=== PATIENT | male | born 1980 | race Caucasian/White ===

== ENCOUNTER 2022-02-01 13:35 | Emergency (ER) | payer OTHER, SELFPAY ==
[2022-02-01 13:40] VITALS: BP 130/73; PULSE 72; RESP 16; TEMP 36.7; O2SAT 98
--- NOTE | 2022-02-01 13:54 | ED.SKABFB ---
HPI - Skin/Abscess/Foreign Bdy General Chief complaint: Skin/Abscess/Foreign Body Stated complaint: right hand finger spider bite Time Seen by Provider: 02/01/22 13:48 Source: patient, RN notes reviewed and old records reviewed History of Present Illness HPI narrative: 41-year-old male who presents to express care with complaints of lesion to his right proximal index finger which he noted yesterday morning. Patient states that area has increased in size and redness since last night, he did express some purulent drainage from lesion area this morning. Patient initially thought it could be a spider bite as he had seen a couple brown recluse in the house this week and just recently had the house sprayed then. 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 MD complaint: lesion Onset (ago): day(s) (day 2 of symptoms) Severity scale (1-10): 5 Treatments prior to arrival: attempted to drain pus at home Related Data Home Medications Medication Instructions Recorded Confirmed amlodipine 5 mg tablet 5 mg PO DAILY 02/01/22 02/01/22 aspirin 81 mg tablet,delayed 81 mg PO DAILY 02/01/22 02/01/22 release doxepin 10 mg capsule 10 mg PO DAILY 02/01/22 02/01/22 gabapentin 400 mg capsule 400 mg PO DAILY 02/01/22 02/01/22 metoprolol succinate 50 mg 50 mg PO DAILY 02/01/22 02/01/22 tablet,extended release 24 hr rosuvastatin 20 mg tablet 20 mg PO DAILY 02/01/22 02/01/22 Allergies Allergy/AdvReac Type Severity Reaction Status Date / Time No Known Allergies Allergy Verified 02/01/22 14:02 Review of Systems Review of Systems: CONSTITUTIONAL: Denies fever, chills, or sweats. EYES: Denies visual changes, redness, or discharge. ENT: Denies rhinorrhea, congestion, sore throat, or otalgia. CARDIOVASCULAR: Denies chest pain, palpitations, or edema. RESPIRATORY: Denies cough or dyspnea. GASTROINTESTINAL: Denies abdominal pain, nausea, vomiting, or diarrhea. GENITOURINARY: Denies dysuria or hematuria. SKIN: Positive wound to right proximal dorsal index finger with some redness MUSCULOSKELETAL: Denies back pain, joint pain, or myalgia. NEUROLOGIC: Denies headache, numbness, or weakness. PSYCHIATRIC: Denies anxiety or depression. All systems reviewed & are unremarkable except as noted in HPI and below PMFSH Past Medical History Medical History Diabetes mellitus diet only Hyperlipidemia Hypertension Family History Family History Other Diabetes mellitus Social History Social History (Updated 02/01/22 @ 14:24 by Katherine Bragg NP) Smoking packs per day: 1 Smoking cigarettes per day: 20.0 Smoking status: Current every day smoker Tobacco type: cigarettes Alcohol intake: current Alcohol use details: social Substance use type: does not use Living arrangements: with family Gender identity (if verbalized by the patient): Male Comments At time of signature, agree with nursing past medical, surgical, social and family history. There is no relevant family history pertinent to the presenting complaint Exam Narrative: GENERAL: Well-appearing, well-nourished, and in no acute distress. HEAD: Normocephalic, atraumatic. EYES: PERRLA and EOMI. ENT: Nares clear, no rhinorrhea or epistaxis. Mucous membranes moist. TMs normal with good light reflex throat pink with no lesions or exudates NECK: Supple. No lymphadenopathy CHEST: Clear to auscultation. No respiratory distress. SaO2 98% on room air HEART: Regular rate and rhythm. No murmur heard. Normal peripheral pulses. ABDOMEN: Soft, nontender, nondistended, normal active bowel sounds. EXTREMITIES: Normal range of motion. No edema. SKIN: Warm, dry, no rash, 0.5cm diameter lesion on proximal right index finger with some surrounding redness, no present drainage from site. NEURO: No focal deficits. Alert and oriented x3. Course Course Level of Care: Express
== END 2022-02-01 14:10 | disposition home or self-care (01) ==
PROVIDERS: Emergency Provider Registered Nurse; PCP Internal Medicine
DX: L02.511 Cutaneous abscess of right hand (principal); E11.9 Type 2 diabetes mellitus without complications; E78.5 Hyperlipidemia, unspecified; I10 Essential (primary) hypertension; F17.210 Nicotine dependence, cigarettes, uncomplicated
CPT/HCPCS: 99213; G0463

== ENCOUNTER 2022-07-03 09:43 | Emergency (ER) | payer OTHER, SELFPAY ==
[2022-07-03 09:54] VITALS: BP 136/91; PULSE 84; RESP 20; TEMP 37.1; O2SAT 97
--- NOTE | 2022-07-03 10:36 | ED.GENADULT ---
HPI - General Adult General Chief complaint: Upper Respiratory Infection Stated complaint: Congestion/Cough Time Seen by Provider: 07/03/22 10:36 Source: patient, RN notes reviewed and old records reviewed Mode of arrival: ambulatory Limitations: no limitations History of Present Illness HPI narrative: 41-year-old male presents to [facility] care with complaints of cough and congestion for the past 3-4 days with complaints of feeling like chest is on fire with cough. Patient also states that he has had some sore throat pain and noted white spot on uvula yesterday but is gone today, he reports that he awoke today with left sided of his face feeling full and having pressure. He states that he has been taking Mucinex without any improvement in his symptoms. MD complaint: cough and congestion, sore throat, facial pressure left Severity scale (1-10): 5 Treatments prior to arrival: other (mucinex) Related Data Home Medications Medication Instructions Recorded Confirmed amlodipine 5 mg tablet 5 mg PO DAILY 02/01/22 02/01/22 aspirin 81 mg tablet,delayed 81 mg PO DAILY 02/01/22 02/01/22 release doxepin 10 mg capsule 10 mg PO DAILY 02/01/22 02/01/22 gabapentin 400 mg capsule 400 mg PO DAILY 02/01/22 02/01/22 metoprolol succinate 50 mg 50 mg PO DAILY 02/01/22 02/01/22 tablet,extended release 24 hr rosuvastatin 20 mg tablet 20 mg PO DAILY 02/01/22 02/01/22 metformin 500 mg tablet mg 07/03/22 Allergies Allergy/AdvReac Type Severity Reaction Status Date / Time No Known Allergies Allergy Verified 02/01/22 14:02 Review of Systems Review of Systems: CONSTITUTIONAL: Denies known fever, chills, or sweats. EYES: Denies visual changes, redness, or discharge. ENT: Reports rhinorrhea, congestion, sore throat, no otalgia. CARDIOVASCULAR: Denies chest pain, palpitations, or edema. RESPIRATORY: Reports frequent cough or dyspnea, burning in chest with cough GASTROINTESTINAL: Denies abdominal pain, nausea, vomiting, or diarrhea. GENITOURINARY: Denies dysuria or hematuria. SKIN: Denies rash or itching. MUSCULOSKELETAL: Denies back pain, joint pain, or myalgia. NEUROLOGIC: Denies headache, numbness, or weakness. PSYCHIATRIC: Denies anxiety or depression. All systems reviewed & are unremarkable except as noted in HPI and below PMFSH Past Medical History Medical History Diabetes mellitus diet only Hyperlipidemia Hypertension Family History Family History Other Diabetes mellitus Social History Social History Smoking packs per day: 1 Smoking cigarettes per day: 20.0 Smoking status: Current every day smoker Tobacco type: cigarettes Alcohol intake: current Alcohol use details: social Substance use type: does not use Living arrangements: with family Gender identity (if verbalized by the patient): Male Comments At time of signature, agree with nursing past medical, surgical, social and family history. There is no relevant family history pertinent to the presenting complaint Exam Narrative: GENERAL: Well-appearing, well-nourished, and in no acute distress. HEAD: Normocephalic, atraumatic. EYES: PERRLA and EOMI. ENT: Nares clear, clear rhinorrhea no epistaxis. Mucous membranes moist.TM's normal with dull light reflex, throat red with no lesions or exudates, swelling noted NECK: Supple.no lymphadenopathy CHEST: Clear to auscultation. No respiratory distress. frequent harsh cough, SAO2 97% on room air HEART: Regular rate and rhythm. No murmur heard. Normal peripheral pulses. ABDOMEN: Soft, nontender, nondistended, normal active bowel sounds. EXTREMITIES: Normal range of motion. No edema. SKIN: Warm, dry, no rash. NEURO: No focal deficits. Alert and oriented x3. Course Course Emergency Course: Patient is aware of diagnosis, understands and agrees
== END 2022-07-03 11:10 | disposition home or self-care (01) ==
PROVIDERS: Emergency Provider Registered Nurse; PCP Internal Medicine
DX: J06.9 Acute upper respiratory infection, unspecified (principal); R05.1 Acute cough; F17.210 Nicotine dependence, cigarettes, uncomplicated; E11.9 Type 2 diabetes mellitus without complications; E78.5 Hyperlipidemia, unspecified; I10 Essential (primary) hypertension; Z79.82 Long term (current) use of aspirin
CPT/HCPCS: 87081; 87880; 99213; G0463

== ENCOUNTER 2024-01-03 13:31 | Emergency (ER) | payer OTHER, SELFPAY ==
--- NOTE | 2024-01-03 13:36 | ED.SKABFB ---
HPI - Skin/Abscess/Foreign Bdy General Chief complaint: Skin/Abscess/Foreign Body Stated complaint: Insect Bite/Eye Time Seen by Provider: 01/03/24 13:42 Source: patient Mode of arrival: ambulatory Limitations: no limitations History of Present Illness HPI narrative: 43 y/o male presents with complaints of mites burrowing into the right eye today. Endorses burning to the right eye. States about 5 days ago, he noticed a mite coming out of the skin of his upper eyelid, resulting in scabbed lesions and mild swelling of his right upper eyelid. Pt denies any pain, itching, vision changes, photophobia, or drainage. Pt states the mites have been burrowing into his skin of hands, arms and legs for 5 days. He describes them as small, black mites; denies any itching or pain from the mites. He has been putting calamine lotion on the sites. He denies any fevers, chills, nausea, vomiting, body aches, or joint pain. Denies lip, tongue, or throat swelling, shortness of breath or wheezing. Denies changes to soap, detergent, lotion, or any other exposures. No one else in the house or any contacts with similar symptoms. Related Data Home Medications Medication Instructions Recorded Confirmed amlodipine 5 mg tablet 5 mg PO DAILY 02/01/22 02/01/22 aspirin 81 mg tablet,delayed 81 mg PO DAILY 02/01/22 02/01/22 release doxepin 10 mg capsule 10 mg PO DAILY 02/01/22 02/01/22 gabapentin 400 mg capsule 400 mg PO DAILY 02/01/22 02/01/22 metoprolol succinate 50 mg 50 mg PO DAILY 02/01/22 02/01/22 tablet,extended release 24 hr rosuvastatin 20 mg tablet 20 mg PO DAILY 02/01/22 02/01/22 metformin 500 mg tablet mg 07/03/22 Allergies Allergy/AdvReac Type Severity Reaction Status Date / Time No Known Allergies Allergy Verified 02/01/22 14:02 Review of Systems Review of Systems: CONSTITUTIONAL: Denies body aches, fever, chills, or sweats. EYES: reports right eye burning Denies visual changes, redness, or discharge. ENT: Denies rhinorrhea or congestion. CARDIOVASCULAR: Denies chest pain, palpitations, or edema. RESPIRATORY: Denies cough or dyspnea. GASTROINTESTINAL: Denies abdominal pain, nausea, vomiting, or diarrhea. SKIN: Reports scattered, scabbed over lesions. Denies itching, discharge, or pain. MUSCULOSKELETAL: Denies back pain, joint pain, or myalgia. NEUROLOGIC: Denies headache, numbness, tingling, or weakness. [facility] Past Medical History Medical History Diabetes mellitus diet only Hyperlipidemia Hypertension Family History Family History Other Diabetes mellitus Social History Social History Smoking packs per day: 1 Smoking cigarettes per day: 20.0 Smoking status: Current every day smoker Tobacco type: cigarettes Alcohol intake: current Alcohol use details: social Substance use type: does not use Living arrangements: with family Gender identity (if verbalized by the patient): Male Comments At time of signature, I have reviewed and agree with nursing past medical, surgical, social and family history unless otherwise noted. Please see nursing chart for further information. There is no relevant family history pertinent to the presenting complaint Exam Narrative: GENERAL: Well-appearing. EYES: right upper lateral lid with approx 0.5cm area of erythematous scabbed/blisters, tender at the site; nontender to the dermatome. Mild right conjunctival injection, minimal upper eyelid swelling. No eye drainage. PERRLA. EOMI. ENT: Mucous membranes moist. NECK: Supple. No lymphadenopathy CHEST: Clear to auscultation. HEART: Regular rate and rhythm. SKIN: Warm and dry. Few scattered, scabbed over lesions to legs and hands, largest clusters to the right upper eyelid and left anterior thigh. Nontender, no drainage or fluctuance. No discharge, ulcerati
[2024-01-03 13:37] VITALS: BP 138/98; PULSE 70; RESP 16; TEMP 36.5; O2SAT 99
[2024-01-03 13:42] VITALS: BP 138/98; PULSE 70; RESP 16; TEMP 36.5; O2SAT 99
== END 2024-01-03 14:06 | disposition home or self-care (01) ==
PROVIDERS: Emergency Provider Nurse Practitioner Family; PCP Internal Medicine
DX: L30.9 Dermatitis, unspecified (principal); F17.210 Nicotine dependence, cigarettes, uncomplicated; E11.9 Type 2 diabetes mellitus without complications; Z79.84 Long term (current) use of oral hypoglycemic drugs; E78.5 Hyperlipidemia, unspecified; I10 Essential (primary) hypertension; Z79.82 Long term (current) use of aspirin
CPT/HCPCS: 99213; G0463